=== PATIENT | female | born 1980 | race Caucasian/White ===

== ENCOUNTER 2023-07-19 20:12 | Emergency (ER) | payer OTHER ==
[~2023-07-19] VITALS: Ht 162.6 cm; Wt 85.3 kg
[2023-07-19 20:41] VITALS: BP 111/73; PULSE 57; RESP 20; TEMP 97.5; O2SAT 100
[2023-07-19] MEDS: IBUPROFEN 600 MG TAB PO ONE (23:08)
[2023-07-19] MEDS: LIDOCAINE 5% 1 EA PATCH TP ONE (23:08)
[2023-07-20] MEDS ORDERED: CYCL-711 PO (00:03)
[2023-07-20 00:15] VITALS: BP 100/68; PULSE 70; RESP 16; TEMP 98; O2SAT 100
== END 2023-07-20 00:15 | disposition home or self-care (01) ==
LOC: MED 20:12
DX: M26.220 Open anterior occlusal relationship (principal); S43.401A Unspecified sprain of right shoulder joint, initial encounter; S93.601A Unspecified sprain of right foot, initial encounter; S39.012A Strain of muscle, fascia and tendon of lower back, initial encounter; S80.211A Abrasion, right knee, initial encounter; Z79.899 Other long term (current) drug therapy; Z91.018 Allergy to other foods; W18.30XA Fall on same level, unspecified, initial encounter; Y93.89 Activity, other specified; Y92.89 Other specified places as the place of occurrence of the external cause; Y99.0 Civilian activity done for income or pay
CPT/HCPCS: 72100; 72170; 73562; 73630; 99284